=== PATIENT | male | born 1935 | race Caucasian/White ===

== ENCOUNTER 2016-12-23 07:54 | Day surgery (SDC) | payer MEDICARE, BC ==
[~2016-12-23] VITALS: Ht 182.9 cm; Wt 122.7 kg
[2016-12-23] VITALS (8 sets, daily range): BP systolic 92–164; BP diastolic 41–86; PULSE 64–79; RESP 18–20; TEMP 97.5–97.6; O2SAT 9–95
[2016-12-23] MEDS ORDERED: SIMV40TA PO (08:15)
[2016-12-23] MEDS ORDERED: DOXA1TAB43 PO (08:15)
[2016-12-23] MEDS ORDERED: METO-426 PO (08:15)
[2016-12-23] MEDS ORDERED: HYDR12.57 PO (08:15)
[2016-12-23] MEDS ORDERED: SYMB160A INH (08:15)
[2016-12-23] MEDS ORDERED: ZETI10TA5 PO (08:15)
[2016-12-23] MEDS ORDERED: VALS1TAB70 PO (08:15)
[2016-12-23] MEDS ORDERED: SODIUM CHLOR 0.9% 1000 ML IV SCH (08:30)
[2016-12-23] MEDS ORDERED: SODIUM CHLORIDE 5 ML FLUSH PRN IVF (08:30)
[2016-12-23] MEDS ORDERED: SODIUM CHLORIDE 5 ML FLUSH BID IVF SCH (09:00)
[2016-12-23] MEDS ORDERED: LIDOCAINE 1%/EPINEPHrine 1:100,000 SOLN 20 ML VIAL ONE (09:09)
[2016-12-23] MEDS ORDERED: SODIUM BICARBONATE 8.4% INJ 50 ML ONE (09:10)
[2016-12-23] MEDS ORDERED: fentaNYL CITRATE 250 MCG/5 ML AMP ONE (09:38)
[2016-12-23] MEDS ORDERED: MIDAZOLAM HCL 5 MG/5 ML VIAL ONE (09:38)
[2016-12-23] MEDS ORDERED: HYDROmorphone HCL 2 MG TAB PO PRN (10:30)
--- NOTE | 2016-12-23 12:50 | RADRPT ---
EXAM DATE/TIME: 12/23/2016 10:03 [place] COMPARISON: No previous studies available for comparison. INDICATIONS : Liver mass. SEDATION TIME: 30 minutes BIOPSY SITE: liver MEDICATION(S): 1.) 2 mg midazolam (Versed) IV 2.) 100 mcg fentanyl (Sublimaze) IV DEVICE(S): 1.) 18 gauge BioPince needle 10cm MEDICAL HISTORY : Hypertension. Chronic obstructive pulmonary disease. SURGICAL HISTORY : Cholecystectomy ENCOUNTER: Initial ACUITY: 1 day PAIN SCORE: 0/10 LOCATION: lateral A total of one core specimen(s) were obtained and sent to the laboratory for pathologic evaluation. PROCEDURE: 1. CT guided liver biopsy. 2. Conscious sedation with continuous EKG and oximetry monitoring. Prior to the procedure informed consent was obtained. Any appropriate prior imaging studies were rev iewed. The site was prepped in a sterile fashion. Full sterile technique was used, including cap, mask, madonna rile gloves and gown and a large sterile sheet. Hand hygiene and 2% chlorhexidine and/or betadine/al cohol prep was utilized per protocol for cutaneous antisepsis. The skin and subcutaneous tissues wer e infiltrated with local anesthetic solution. With CT guidance the previously identified target was localized. Biopsy was performed using the presc ribed needle as above. Adequate hemostasis was obtained with compression at the puncture site. Follow-up CT scan reveals no hemorrhage. The patient tolerated the procedure well and there were no complications. The patient was returned to the Radiology Outpatient Unit in stable condition. CONCLUSION: Uncomplicated CT liver guided biopsy. Dallas Montes MD FACR on December 23, 2016 at 12:48 Board Certified Radiologist. This report was verified electronically.
== END 2016-12-23 14:40 | disposition home or self-care (01) ==
LOC: HRAD 07:54 → HRIP 07:57 → EDSTATUS 08:00 → HRAD 14:40
PROVIDERS: ATTEND Internal Medicine Hematology & Oncology
DX: C22.8 Malignant neoplasm of liver, primary, unspecified as to type (principal)
CPT/HCPCS: 47000; 77012; 88307; 88333; 88341; 88342; J2250; J3010; J7030